=== PATIENT | female | born 1940 | race African-American/Black ===

== ENCOUNTER 2025-03-21 22:23 | Inpatient (IN) | payer MEDICARE, MEDICAID ==
[~2025-03-21] VITALS: Ht 157.5 cm; Wt 50.3 kg
[~2025-03-21 22:23] MED LIST: AMLO10TA80 PO; ASPI-1160 PO; LIP40 PO; QUET25TA PO
[2025-03-21] MEDS: VANCOMYCIN 1G PREMIX 200 ML IV ONE (23:00)
[2025-03-21] MEDS: SODIUM CHLORIDE 0.9% (SEPSIS BOLUS) IV ONE (23:14)
[2025-03-21] MEDS: PIPERACILLIN/TAZO 3.375G/50ML 50 ML IV ONE (23:20)
[2025-03-21 23:29] LABS: BASOPHILS % 0.5 % (0.0-2.0); HEMATOCRIT. 26.6 % (36.0-48.0); HEMOGLOBIN. 8.6 g/dL (12.0-16.0); LYMPHOCYTES % 16.1 % (20.0-50.0); MEAN CORPUSCULAR HEMOGLOBIN 30.4 pg (28.0-32.0); MEAN CORPUSCULAR HGB CONC 32.4 g/dL (31.0-37.0); MEAN CORPUSCULAR VOLUME 93.8 fL (81.0-99.0); MEAN PLATELET VOLUME 6.5 fl (7.4-10.4); MONOCYTES % 6.3 % (2.0-8.0); NEUTROPHILS % 76.1 % (40.0-76.0); PLATELET 500 x1000/uL (130-400); RED BLOOD CELL COUNT 2.84 mill/uL (4.2-5.4); WHITE BLOOD COUNT 6.5 x1000/uL (4.5-11.0)
[2025-03-21 23:37] LABS: INR 1.1; PROTHROMBIN TIME 11.4 sec (9.6-11.0)
[2025-03-21 23:39] LABS: CHLORIDE 105 mEq/L (98-107); POTASSIUM 4.1 mEq/L (3.5-5.1); SODIUM 136 mEq/L (136-145)
[2025-03-21 23:40] LABS: CALCIUM 9.4 mg/dL (8.7-10.4); CARBON DIOXIDE 25 mEq/L (21-32)
[2025-03-21 23:45] LABS: GLUCOSE 100 mg/dL (70-105); UREA NITROGEN BLOOD 33 mg/dL (9-23)
[2025-03-21 23:46] LABS: ETHANOL BLOOD < 10 mg/dL (<10); TROPONIN I HIGH SENSITIVITY 10 ng/L (3.0-34)
[2025-03-21 23:47] LABS: ALANINE AMINOTRANSFERASE 11 IU/L (10-49); ALBUMIN 3.5 g/dL (3.2-4.8); ASPARTATE AMINOTRANSFERASE 24 IU/L (<34); BILIRUBIN DIRECT < 0.1 mg/dL (<=3.0); BILIRUBIN TOTAL 0.3 mg/dL (0.1-1.0)
[2025-03-21 23:49] LABS: CREATININE 1.5 mg/dL (0.6-1.0); PROTEIN TOTAL 9.1 g/dL (6.0-8.3)
[2025-03-22] MEDS ORDERED: GUAIFENESIN 200MG/10ML SUGAR FREE UDC PO PRN (03:00)
[2025-03-22] MEDS ORDERED: CLONIDINE 0.1MG TABLET PO PRN (03:00)
[2025-03-22] MEDS ORDERED: DOCUSATE SODIUM 100MG CAPSULE PO PRN (03:00)
[2025-03-22] MEDS ORDERED: ONDANSETRON HCL 4MG/2ML INJ IV PRN (03:00)
[2025-03-22] MEDS ORDERED: IPRATROPIUM/ALBUTEROL 0.5-3(2.5)MG/3ML NEB HHN PRN (03:00)
[2025-03-22] MEDS: PIPERACILLIN/TAZOBACTAM 3.375 G in DEXTROSE 5% WATER 50 ML IV SCH (03:00)
[2025-03-22] MEDS ORDERED: ACETAMINOPHEN 325MG TABLET PO PRN (03:00)
[2025-03-22] MEDS ORDERED: MAGNESIUM/ALUMINUM HYDROXIDE/SIMETHICONE 30ML UDC PO PRN (03:00)
[2025-03-22] MEDS: ENOXAPARIN 40MG/0.4ML SYR SUBCUT SCH (05:42)
[2025-03-22] MEDS: SODIUM CHLORIDE 0.9% 1,000 ML IV SCH (05:43)
[2025-03-22] MEDS: ACETAMINOPHEN 325MG TABLET PO PRN (05:44)
[2025-03-22 05:58] LABS: IRON 30 ug/dL (50-170)
[2025-03-22 06:01] LABS: CREATINE KINASE 95 IU/L (34-145); TOTAL IRON BINDING CAPACITY 340 ug/dl (250-425)
[2025-03-22 06:45] VITALS: BP 131/48; PULSE 75; RESP 19; TEMP 36.3; O2SAT 99
[2025-03-22 08:00] VITALS: BP_SYST 105; BP_SYST 138; BP_DIAS 51; BP_DIAS 80; PULSE 68; PULSE 86; RESP 18; TEMP 36.2; TEMP 36.8; O2SAT 97
[2025-03-22] MEDS: AMLODIPINE 10MG TABLET PO SCH (08:49)
[2025-03-22] MEDS: PIPERACILLIN/TAZO 3.375G/50ML IV SCH (11:32)
[2025-03-22 12:00] VITALS: BP 137/76; PULSE 86; RESP 18; TEMP 36.3; O2SAT 98
[2025-03-22 16:00] VITALS: BP 102/45; PULSE 72; RESP 20; TEMP 36.6; O2SAT 100
[2025-03-22] MEDS: KETOROLAC 15MG/ML VIAL IV PRN (17:11)
[2025-03-22 17:59] LABS: CREATINE KINASE 96 IU/L (34-145)
[2025-03-22 19:52] VITALS: BP 149/60; PULSE 78; RESP 20; TEMP 36.8; O2SAT 95
[2025-03-22] MEDS: ATORVASTATIN CALCIUM 40MG TABLET PO SCH (21:00)
[2025-03-22] MEDS: VANCOMYCIN 500MG PREMIX 100 ML IV SCH (22:03)
[2025-03-23] VITALS: BP 144/65; PULSE 67; RESP 20; TEMP 36.5; O2SAT 100
[2025-03-23 04:00] VITALS: BP 124/45; PULSE 71; RESP 18; TEMP 36.6; O2SAT 100
[2025-03-23 08:00] VITALS: BP 120/86; PULSE 80; RESP 18; TEMP 36.2; O2SAT 97
[2025-03-23 09:48] LABS: BASOPHILS % 1.1 % (0.0-2.0); EOSINOPHILS % 3.2 % (0.0-5.0); HEMATOCRIT. 27.8 % (36.0-48.0); HEMOGLOBIN. 8.9 g/dL (12.0-16.0); LYMPHOCYTES % 30.4 % (20.0-50.0); MEAN CORPUSCULAR VOLUME 93.8 fL (81.0-99.0); MEAN PLATELET VOLUME 6.4 fl (7.4-10.4); MONOCYTES % 8.2 % (2.0-8.0); NEUTROPHILS % 57.1 % (40.0-76.0); PLATELET 446 x1000/uL (130-400); RED BLOOD CELL COUNT 2.97 mill/uL (4.2-5.4); RED CELL DISTRIBUTION WIDTH 16.4 % (11.6-14.6); WHITE BLOOD COUNT 3.5 x1000/uL (4.5-11.0)
[2025-03-23 10:09] LABS: POTASSIUM 3.8 mEq/L (3.5-5.1)
[2025-03-23 10:10] LABS: CALCIUM 9.1 mg/dL (8.7-10.4)
[2025-03-23 10:15] LABS: CREATININE 1.4 mg/dL (0.6-1.0)
[2025-03-23 10:19] LABS: T4 FREE 0.9 ng/dL (0.89-1.76)
[2025-03-23 10:20] LABS: THYROID STIMULATING HORMONE 2.9 uIU/mL (0.55-4.78)
[2025-03-23 12:00] VITALS: BP 140/66; PULSE 73; RESP 20; TEMP 36.2; O2SAT 95
[2025-03-23] MEDS: SODIUM HYPOCHLORITE 0.125% 473ML SOLUTION TOP SCH (13:00)
[2025-03-23 16:00] VITALS: BP 115/76; PULSE 79; RESP 20; TEMP 36.6; O2SAT 96
[2025-03-23] MEDS: VANCOMYCIN 750MG PREMIX 150 ML IV SCH (16:34)
[2025-03-23 20:00] VITALS: BP 134/49; PULSE 74; RESP 16; TEMP 36.6; O2SAT 96
[2025-03-23 23:13] LABS: CLARITY URINE CLOUDY (CLEAR); COLOR URINE YELLOW (YELLOW); GLUCOSE URINE NEGATIVE (NEGATIVE); KETONES URINE NEGATIVE (NEGATIVE); LEUKOCYTE ESTERASE URINE 3+ (NEGATIVE); NITRITE URINE NEGATIVE (NEGATIVE); OCCULT BLOOD URINE 1+ (NEGATIVE); PH URINE 5.5 (4.5-8.0); PROTEIN URINE 1+ (NEGATIVE); SPECIFIC GRAVITY URINE 1.013 (1.005-1.030); UROBILINOGEN URINE 0.2 E.U./dL (0.2-1.0)
[2025-03-23 23:36] LABS: *AMPHETAMINES SCREEN URINE NEGATIVE (NEGATIVE); *BARBITURATES SCREEN URINE NEGATIVE (NEGATIVE); *BENZODIAZEPINES SCREEN URINE NEGATIVE (NEGATIVE); *COCAINE SCREEN URINE NEGATIVE (NEGATIVE); CANNABINOID URINE SCREEN NEGATIVE (NEGATIVE); ECSTASY MDMA SCREEN URINE NEGATIVE (NEGATIVE); METHADONE URINE SCREEN NEGATIVE (NEGATIVE); OPIATES URINE SCREEN NEGATIVE (NEGATIVE); PHENCYCLIDINE URINE SCREEN NEGATIVE (NEGATIVE)
[2025-03-24] VITALS: BP 124/54; PULSE 74; RESP 20; TEMP 36.6; O2SAT 98
[2025-03-24 00:20] LABS: SQUAMOUS EPITHELIAL CELL URINE 1+ /lpf (RARE/1+)
[2025-03-24 00:21] LABS: RBC URINE 0-2 /hpf (0-2); WBC URINE 50-100 /hpf (0-2)
[2025-03-24 00:22] LABS: BACTERIA URINE TRACE
[2025-03-24 04:00] VITALS: BP 130/60; PULSE 76; RESP 19; TEMP 36.5; O2SAT 94
[2025-03-24 08:00] VITALS: BP 113/86; PULSE 76; RESP 20; TEMP 36.7; O2SAT 98
[2025-03-24 12:00] VITALS: BP 120/86; PULSE 74; RESP 20; TEMP 36.4; O2SAT 100
[2025-03-24] MEDS ORDERED: SULF1TAB47 MT (14:25)
[2025-03-24] MEDS ORDERED: LEVO250T74 MT (14:25)
[2025-03-24 16:00] VITALS: BP 114/74; PULSE 80; RESP 18; TEMP 36.8; O2SAT 97
[2025-03-24] MEDS ORDERED: MORPHINE SULFATE 2 MG/ML INJ (NOT FOR IM USE) IV PRN (20:15)
[2025-03-24] MEDS ORDERED: NALOXONE HCL 0.4MG/ML VIAL IV PRN (20:15)
[2025-03-24 20:45] VITALS: BP 160/66; PULSE 87; RESP 19; TEMP 36.3
[2025-03-24] MEDS: SULFAMETHOXAZOLE/TRIMETHOPRIM 800/160MG TABLET PO SCH (21:36)
[2025-03-25] VITALS (7 sets, daily range): BP systolic 112–160; BP diastolic 52–97; PULSE 72–111; RESP 18–20; TEMP 36.3–36.8; O2SAT 97–100
[2025-03-25] MEDS: SULFAMETHOXAZOLE/TRIMETHOPRIM 400/80MG TAB PO SCH (08:35)
[2025-03-25] MEDS ORDERED: CEPHALEXIN 250MG CAPSULE PO SCH (22:00)
== END 2025-03-25 20:40 | disposition home health service (06) | DRG 603 ==
LOC: ER 22:23 → 7WST 03-22 01:10
PROVIDERS: ADMIT Internal Medicine; ATTEND Internal Medicine
DX: L03.116 Cellulitis of left lower limb (principal); N17.9 Acute kidney failure, unspecified; L97.829 Non-pressure chronic ulcer of other part of left lower leg with unspecified severity; N18.31 Chronic kidney disease, stage 3a; E11.22 Type 2 diabetes mellitus with diabetic chronic kidney disease; D75.839 Thrombocytosis, unspecified; E11.622 Type 2 diabetes mellitus with other skin ulcer; I48.91 Unspecified atrial fibrillation; E11.51 Type 2 diabetes mellitus with diabetic peripheral angiopathy without gangrene; I12.9 Hypertensive chronic kidney disease with stage 1 through stage 4 chronic kidney disease, or unspecified chronic kidney disease; I87.2 Venous insufficiency (chronic) (peripheral); Z86.718 Personal history of other venous thrombosis and embolism; Z79.899 Other long term (current) drug therapy
CPT/HCPCS: 36415; 71045; 72170; 73590; 73718; 80048; 80061; 80076; 80202; 80305; 80320; 81003; 82550; 82728; 82962; 83036; 83540; 83550; 83605; 83735; 84145; 84439; 84443; 84481; 84484; 85025; 87070; 87077; 87186; 93005; 93923; 97162; 97166; 99285; A6449; J1650; J1885; J2543; J3370; J7030; G0480